=== PATIENT | male | born 1985 | race Two or more races ===

== ENCOUNTER 2017-04-02 18:45 | Emergency (ER) | payer OTHER ==
[~2017-04-02] VITALS: Ht 170.2 cm; Wt 74.8 kg
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
--- NOTE | ~2017-04-02 | EKG ---
PATIENT: FELI SERRATO UNIT #: [id number] Ventricular Rate: 66 BPM Atrial Rate: 66 BPM P-R Interval: 184 ms QRS Duration: 106 ms Q-T Interval: 382 ms QTC Calculation(Bezet): 400 ms P [place]: 60 degrees Calculated R [place]: 67 degrees Calculated T [place]: 59 degrees Diagnosis Line: Normal sinus rhythm Diagnosis Line: Normal ECG Diagnosis Line: No previous ECGs available Diagnosis Line: Confirmed by CHRISTIANA GUERRIER MD ([id number]) on Diagnosis Line: 04/04/2017 11:32:23 AM INTERPRETING MD: CHEY WARREN
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
== END 2017-04-02 21:35 | disposition home or self-care (01) ==
LOC: CED 18:45 → CFTX 19:39 → CED 19:39
DX: S16.1XXA Strain of muscle, fascia and tendon at neck level, initial encounter (principal); S39.012A Strain of muscle, fascia and tendon of lower back, initial encounter; V43.52XA Car driver injured in collision with other type car in traffic accident, initial encounter; Y93.89 Activity, other specified; Y92.410 Unspecified street and highway as the place of occurrence of the external cause
CPT/HCPCS: 71010; 72040; 72100; 93005; 96372; 99284; J1885